=== PATIENT | male | born 1970 | race Caucasian/White ===

== ENCOUNTER 2024-08-07 13:06 | Inpatient (IN) | payer OTHER, SELFPAY ==
[2024-08-06] VITALS (8 sets, daily range): BP systolic 125–163; BP diastolic 66–85; BMI 42.0; BMI 43.2
[2024-08-06] MEDS: DUONEB 3 ML INH ×3 (10:55→20:36)
--- NOTE | 2024-08-06 11:00 | ED.GENMED ---
History of Present Illness
General
Chief Complaint: Chest Pain
Source: patient and family
Exam Limitations: none
Time Seen by Provider: 08/06/24 10:25
Nursing documentation reviewed up to this point in time: agreed with
History of Present Illness
History of Present Illness:
53-year-old male past medical history of hypertension sleep apnea presenting to the emergency department with shortness of breath worsening over the past 2 weeks ongoing cough saw the primary care doctor yesterday was found have some wheezing and
started on steroids antibiotics and had a nebulizer treatment. Worsening symptoms today. Also developing some chest pain secondary to coughing. Denies specific fevers.
Past History
Past History
ED Past Medical History: HTN
ED Past Surgical History: None
Social History
Tobacco: Non-smoker
Alcohol: None
Drug: None
Personal:
Living: with family
Employment: Employed
Review of Systems
Review of Systems
Allergies reviewed?: Yes
All Other Systems: ROS reviewed and negative except as documented in HPI and ROS
Phy Exam
Physical Exam
Physical Exam:
GENERAL: Alert , in no apparent distress
EYE: pupils equal and reactive
NECK: Supple, no significant adenopathy.
ENT: o/p clr, mmm.
CARDIAC: Regular rate and rhythm .
LUNGS: Diffuse inspiratory and expiratory wheezing
ABDOMEN: Soft, without focal tenderness, no r/g, no cvat
NEUROLOGICAL: Alert and oriented, no focal neuro deficits
SKIN: Warm and dry, skin intact.
MUSCULOSKELETAL: No edema, well perfused.
PSYCH: Normal and appropriate interaction.
Scores
Heart Score for Chest Pain Patients
STEMI patient?: No
History: Slightly or Non-Suspicious
ECG: Normal
Age: >45 - <65 years
Risk Factors: 1 or 2 Risk Factors
Troponin: </= Normal Limit
Heart Score for Chest Pain Patients: 2
Heart Score Risk: 2.5% MACE over next 6 weeks
Sepsis
Sepsis Screening
Sepsis Assessment: Sepsis Ruled Out
Sepsis Screen
Sepsis Screen: Sepsis Ruled Out
Date: 08/06/24
Time: 13:34
Course
Orders/Labs/Results
Orders:
Orders
08/06/24 10:02
Electrocardiogram (*1) Urgent
Reason for Study: Chest Pain
EKG- Treatment ONCE
08/06/24 10:50
Ipratropium/Albuterol Sulfate [Duoneb] 3 ml .ROUTE .STK-MED ONE
08/06/24 10:54
Ipratropium/Albuterol Sulfate [Duoneb] 3 ml INH R NOW ONE
Magnesium Sulfate 2 Gram/50 ml [Magnesium Sulfate] 2 gram in 50 ml IV NOW
Chest X-ray Portable [CR Chest Portable - 1 View] Urgent
Comment:
Reason For Exam: sob cough
Reason Study Needs to be Portable: Patient Unstable
08/06/24 10:59
CBC/With Diff [Complete Blood Count/With Diff] Urgent
CMP [Comprehensive Metabolic Panel] Urgent
08/06/24 13:29
Albuterol Nebs [Ventolin Nebules] 2.5 mg INH R NOW STA
Abnormal Lab Results
08/06/24
10:59
RBC 4.34 L 10^6/uL
(4.70-6.10)
MCH 33.9 H pg
(27.0-31.0)
Abs Immat Gran (auto) 0.1 H 10^3/uL
(0-0.05)
Absolute Neuts (auto) 7.8 H 10^3/uL
(1.4-6.5)
Absolute Monos (auto) 0.7 H 10^3/uL
(0.1-0.6)
Immature Gran % 1.0 H %
(0-0.5)
Lymphocytes % 17.5 L %
(20.5-51.1)
Carbon Dioxide 21 L mmol/L
(22-30)
Glucose 115 H mg/dl
(70-99)
08/06/24 10:59
08/06/24 10:59
Vital Signs
Initial and Last Documented VS:
Initial Vital Signs
Temp Pulse Resp BP Pulse Ox
97.9 F 67 22 163/85 95
08/06/24 10:10 08/06/24 10:10 08/06/24 10:10 08/06/24 10:10 08/06/24 10:10
Last Documented Vital Signs
Temp Pulse Resp BP Pulse Ox
97.9 F 62 15 132/76 91
08/06/24 10:10 08/06/24 13:15 08/06/24 13:15 08/06/24 12:00 08/06/24 13:15
MDM/Problems Addressed
MDM/Problems Addressed:
53-year-old male presenting to the emergency department with concerns of worsening shortness of breath. Has had shortness of breath worsening cough over the past 2 weeks old primary care doctor yesterday was found to have wheezing and started on
steroids inhalers and azithromycin. Upon arrival here hypertensive otherwise vital signs are normal. Patient does appear to have some difficulty breathing and is unable to speak in full sentences. Has diffuse symptoms during expiratory wheezing.
Started on DuoNeb also given dose of magnesium. Took a 60 mg dose of prednisone yesterday as well as today. patient had some slight improvement but still very severe significant diffuse wheezing plan to admit for further monitoring and treatment.
*Critical Care Note
Total Time (30-74mins, 75-104mins- exclusive of procedures): Not Applicable
ED Attending Note
-
Portions of this chart may have been created with voice recognition software.� Occasional wrong word or��sound alike� substitutions may have occurred due to the inherent limitations of voice recognition software.
Discharge Plan
Departure
Patient Disposition: Admit
Date of Disposition: 08/06/24
Time of Disposition: 13:34
Admit to: Med/Surg
Admit to doctor: Reba
Presentation/result/management discussed w/ accepting MD/DO: Hospitalist
Patient with high blood pressure during this ER visit?: No
Condition: Good
Covid-19: Not Applicable
Discharge Problem:
Diffuse wheezing
Prescriptions:
No Action
lisinopril-hydrochlorothiazide 1 EACH tablet
1 ea PO DAILY
ibuprofen 200 MG tablet
600 mg PO BIDPRN PRN (Reason: mild pain)
mirtazapine 15 MG tablet
15 mg PO HS
zolpidem 10 MG tablet
10 mg PO HS
amitriptyline 100 MG tablet
100 mg PO HS
fbqcvaa-xmzlvjmajfowf-wnyzuxwc 1 TABLET tablet
2 tab PO DAILYPRN PRN (Reason: migraine)
fish oil-dha-epa 1 EACH capsule
1 ea PO DAILY
galcanezumab-gnlm [Emgality Pen] 120 MG/ML pen injector
120 mg SQ MONTHLY
acetaminophen 325 MG tablet
650 mg PO Q6HPRN PRN (Reason: fever>100.5F) 0RF
amoxicillin-pot clavulanate 1 TABLET tablet
1 tab PO Q12 Qty: 14 0RF
amoxicillin 250 MG tablet,chewable
250 mg PO Q12H Qty: 14 0RF
ibuprofen 800 MG tablet
800 mg PO Q8HPRN PRN (Reason: Tooth Ache) Qty: 16 0RF
oxycodone-acetaminophen 5 MG/325 MG tablet
2 tab PO Q6HPRN PRN (Reason: Severe tooth pain 8-10) Qty: 30 0RF
hydrocortisone acetate 19.8 GM ointment
21 gm RC BID Qty: 1 0RF
Rx Instructions:
To rectal area 2-3 times a day
Referrals:
Sebastian Khan MD [Family Provider] -
Interventions
Interventions:
*ED COVID-19 Vaccine History Last Done: 08/06/24 10:10
ED- Cardiac Assessment Last Done: 08/06/24 10:45
Discharge Date and Time
Print Language: CITIZEN OF [place]
[2024-08-06] MEDS: MAGNESIUM SULFATE 50 IV (11:05)
[2024-08-06 11:09] LABS: % Basophils 0.3 % (0-2); % Eosinophils 0.4 % (0-6); % Lymphocytes 17.5 % (20.5-51.1); % Monocytes 6.9 % (1.7-9.3); % Neutrophils 73.9 % (42.2-75.2); Absolute Immature Granulocytes 0.1 10^3/uL (0-0.05); Absolute Lymphocytes 1.9 10^3/uL (1.2-3.4); Absolute Monocytes 0.7 10^3/uL (0.1-0.6); Absolute Neutrophils 7.8 10^3/uL (1.4-6.5); Hematocrit 39.9 % (39.0-52.0); Hemoglobin 14.7 g/dL (13.0-18.0); Mean Corp Hgb Conc. 36.8 g/dL (33.0-37.0); Mean Corpuscular Hgb 33.9 pg (27.0-31.0); Mean Corpuscular Volume 91.9 fL (80.0-94.0); Mean Platelet Volume 9.7 fL (7.4-10.4); Nucleated Red Blood Cells % 0 % (-); Platelet Count 343 10^3/uL (130-400); Red Blood Cell Count 4.34 10^6/uL (4.70-6.10); Red Cell Dist. Width 12.8 % (11.5-14.5); White Blood Cell Count 10.6 10^3/uL (4.8-10.8)
[2024-08-06 11:19] LABS: ALT (SGPT) 27 U/L (0-50); AST (SGOT) 26 U/L (17-59); Albumin 4.1 g/dl (3.5-5.0); Alkaline Phosphatase 52 U/L (38-126); Blood Urea Nitrogen 18 mg/dl (9-20); Calcium 9.8 mg/dl (8.4-10.2); Carbon Dioxide 21 mmol/L (22-30); Chloride 107 mmol/L (98-107); Estimated Creatinine Clearance > 125 ml/min; Glucose 115 mg/dl (70-99); Potassium 4.1 mmol/L (3.5-5.1); Sodium 140 mmol/L (135-145); Total Bilirubin 0.3 mg/dl (0.2-1.3); Total Protein 6.7 g/dl (6.3-8.2); eGFR > 60.00
[2024-08-06] MEDS: MORPHINE SULFATE 4 MG IV (13:46)
[2024-08-06] MEDS: VENTOLIN NEBULES 2.5 MG INH (13:46)
--- NOTE | 2024-08-06 13:59 | HPS.HSE ---
Family Physician
-
Family Physician: Sebastian Khan
Chief Complaint
-
cough
History of Present Illness
53-year-old male past medical history of hypertension, sleep apnea, presented to the emergency room for shortness of breath worsening over the past 2 weeks with cough. He saw the primary care doctor yesterday and was found to have wheezing and
started on steroids, antibiotics and had a nebulizer treatment. She has worsening symptoms today. She also developed some chest pain secondary to coughing yesterday. Pain involves the chest and radiates to the scapula on the back. She denies any
fevers or chills. He denies any sore throat or bodyaches at any time. He noted he was hypoxic down to 80s at home.
He denies any history of asthma or COPD. He is a former smoker but has not smoked in several years. He drinks alcohol rarely.
Denies any history of blood clots.
Medical History
Past Medical History
Past Medical History: Reports Other (hypertension, sleep apnea, )
Past Surgical History: Reports None
Social History
Tobacco: Former Smoker
Alcohol: Occasional
Drug: None
Family History
Family History: Not pertinent
Allergies / Home Medications
Allergies reflects when Allergies were last updated in [facility].
Home Medications with original date entered in [facility]
Allergy/Medication List:
Allergies
Allergy/AdvReac Type Severity Reaction Status Date / Time
No Known Allergies Allergy Verified 08/06/24 10:16
Home Medications
albuterol sulfate 90 mcg/actuation aerosol inhaler 2 puff inhalation R Q4HPRN PRN sob/wheezing 08/06/24
allopurinol 100 mg tablet 100 mg PO DAILY 08/06/24
azithromycin 250 mg tablet 250 mg PO PER PKG DIR 08/06/24
diazepam 5 mg tablet 1 mg PO [id number] PRN dental visits 08/06/24
indomethacin 50 mg capsule 50 mg PO BIDPRN PRN gout flare up 08/06/24
lisinopril 20 mg-hydrochlorothiazide 25 mg tablet 1 tab PO DAILY 08/06/24
prednisone 20 mg tablet 20 mg PO .TAPER 08/06/24
Review of Systems
-
History Source: Patient
A 12 point ROS was completed and negative except as noted: Yes
Constitutional: Reports No Symptoms
EENT: Reports No Symptoms
Respiratory: Reports See HPI
Cardiac: Reports See HPI
Abdomen/GI: Reports No Symptoms
: Reports No Symptoms
Musculoskeletal: Reports No Symptoms
Skin: Reports No Symptoms
Neurological: Reports No Symptoms
Endocrine: Reports No Symptoms
Hematologic/Lymphatic: Reports No Symptoms
Psych: Reports No Symptoms
Physical Exam
Vital Signs
Vital Signs
Temp Pulse Resp BP Pulse Ox
97.9 F 62 15 132/76 91
08/06/24 10:10 08/06/24 13:15 08/06/24 13:15 08/06/24 12:00 08/06/24 13:15
Physical Exam
General: Well Developed, Well Nourished and No Apparent Distress
HEENT: NormoCephalic, Moist mucous membranes and Atraumatic
Respiratory: Wheezes and Rhonchi
Cardiac: S1/S2 and Regular Rhythm; No Murmur or Rub
GI: Soft, Non Tender, Non Distended and Normal Bowel Sounds; No Organomegaly
Rectal: Deferred by Provider
Musculoskeletal: No Clubbing, No Cyanosis and No Edema
Skin: No Rash
Neuro: Nonfocal/grossly intact
Laboratory Results
-
08/06/24 10:59
08/06/24 10:59
Laboratory Results
Total Bilirubin 0.3 mg/dl (0.2-1.3) 08/06/24 10:59
AST 26 U/L (17-59) 08/06/24 10:59
ALT 27 U/L (0-50) 08/06/24 10:59
Alkaline Phosphatase 52 U/L (38-126) 08/06/24 10:59
Data Reviewed
-
Lab Data: Labs Reviewed by me
Old Records: Reviewed
Impression/Plan
-
IMPRESSION:
PLAN:
# Reactive airway disease/acute bronchitis with chest pain secondary to cough
-Chest x-ray showed minimal bibasilar opacities, favoring atelectasis without evidence of pneumonia
-Given DuoNebs, magnesium
-Inspiratory/expiratory wheezing
-Continue DuoNebs every 6 hours
-Dexamethasone 4 mg every 12
-Guaifenesin
-stop azithromycin
Essential hypertension
-Continue lisinopril/hydrochlorothiazide
Obstructive sleep apnea
-Uses CPAP
Gout
-Continue allopurinol
Anxiety
-Continue diazepam
Full code
DVT prophylaxis�heparin
Regular
[2024-08-06 15:51] LABS: COVID-19 Antigen Negative (Negative)
[2024-08-06] MEDS: LOVENOX 40 MG SC (17:02)
[2024-08-06] MEDS: DECADRON 4 MG IV (17:04)
[2024-08-06] MEDS: TYLENOL 650 MG PO ×2 (17:05→22:09)
[2024-08-06] MEDS: ROBITUSSIN DM 10 ML PO ×2 (17:53→22:09)
[2024-08-07] MEDS: DECADRON 4 MG IV ×3 (00:15→15:23)
[2024-08-07] MEDS: MORPHINE SULFATE 2 MG IV ×2 (04:13→09:36)
[2024-08-07 07:35] VITALS: BP 134/64
[2024-08-07] MEDS: DUONEB 3 ML INH ×4 (07:55→19:37)
[2024-08-07] MEDS: ZESTRIL 20 MG PO (08:15)
[2024-08-07] MEDS: ZYLOPRIM 100 MG PO (08:15)
[2024-08-07] MEDS: ORETIC 25 MG PO (08:16)
[2024-08-07 08:33] LABS: % Basophils 0.2 % (0-2); % Immature Granulocytes 0.8 % (0-0.5); % Lymphocytes 9.9 % (20.5-51.1); % Monocytes 4.7 % (1.7-9.3); % Neutrophils 84.4 % (42.2-75.2); Absolute Immature Granulocytes 0.1 10^3/uL (0-0.05); Absolute Lymphocytes 1.2 10^3/uL (1.2-3.4); Absolute Monocytes 0.6 10^3/uL (0.1-0.6); Absolute Neutrophils 10.5 10^3/uL (1.4-6.5); Hemoglobin 14.8 g/dL (13.0-18.0); Mean Corp Hgb Conc. 36.1 g/dL (33.0-37.0); Mean Corpuscular Hgb 34.7 pg (27.0-31.0); Nucleated Red Blood Cells % 0 % (-); Platelet Count 351 10^3/uL (130-400); Red Blood Cell Count 4.27 10^6/uL (4.70-6.10); Red Cell Dist. Width 13.7 % (11.5-14.5); White Blood Cell Count 12.5 10^3/uL (4.8-10.8)
[2024-08-07 09:12] LABS: Blood Urea Nitrogen 14 mg/dl (9-20); Calcium 9.8 mg/dl (8.4-10.2); Carbon Dioxide 23 mmol/L (22-30); Chloride 104 mmol/L (98-107); Estimated Creatinine Clearance > 125 ml/min; Glucose 119 mg/dl (70-99); Potassium 4.9 mmol/L (3.5-5.1); Sodium 140 mmol/L (135-145); eGFR > 60.00
[2024-08-07] MEDS: ROBITUSSIN AC 5 ML PO (11:52)
[2024-08-07] MEDS: TORADOL 15 MG IV ×2 (11:53→18:01)
--- NOTE | 2024-08-07 12:39 | W.PN.HOSP.TC ---
Today's Communication/Plan
-
IV steroids
bronchodilators
check CT chest
Assessment / Plan
Assessment / Plan
# Reactive airway disease/acute bronchitis with chest pain secondary to cough
#Hx of tobacco abuse
-Chest x-ray showed minimal bibasilar opacities, favoring atelectasis without evidence of pneumonia
-Check CT chest
-Given DuoNebs, magnesium
-Inspiratory/expiratory wheezing
-Continue DuoNebs
-Dexamethasone 4 mg every 12
-Guaifenesin w/codeine
-flu and COVID negative. Check RSV. Works as RN at [email or web address]
-stop azithromycin
Essential hypertension
-Continue lisinopril/hydrochlorothiazide
Obstructive sleep apnea
-Uses CPAP
Gout
-Continue allopurinol
Anxiety
-hold benzos
Morbid obesity due to excess calories
-affects all aspect of medical care
-weight loss recommended
Full code
DVT prophylaxis�heparin
Anticipated Discharge: Within 24 hours
Subjective/Interval History
-
Date of Service: August 07, 2024
states of severe pain with coughing
dry cough
used to smoke in the past and exposure to tobacco
Objective Data
-
Labs:
Laboratory Results
08/07/24
08:13
WBC 12.5 H
Hgb 14.8
Hct 41.0
Plt Count 351
Sodium 140
Potassium 4.9
Chloride 104
Carbon Dioxide 23
BUN 14
Creatinine 0.7
Glucose 119 H
Calcium 9.8
Vital Signs:
Vital Signs
Temp Pulse Resp BP Pulse Ox
97.7 F 78 18 134/64 93
08/07/24 07:35 08/07/24 11:22 08/07/24 11:22 08/07/24 07:35 08/07/24 11:22
I&O
08/06/24 08/07/24 08/08/24
06:59 06:59 06:59
Intake Total 1640 / 1640
Output Total 1300 / 1300
Balance 340 / 340
Physical Exam
-
General: Well Developed, Well Nourished, No Apparent Distress and Morbidly Obese
HEENT: Normocephalic, Atraumatic and Moist Mucous Membranes
Respiratory: Wheezes and Decreased Breath Sounds
Cardiac: Regular Rhythm and S1/S2; Negative Murmur, Rub or Gallop
GI: Soft, Nontender, Nondistended and Normal Bowel Sounds; Negative Organomegaly
Rectal: Deferred by Provider
Musculoskeletal: No Clubbing, No Cyanosis and No Edema
Skin: Negative Rash
Neuro: Awake, Alert, Oriented, AO x 3, No Motor Deficits and Nonfocal/Grossly Intact
Psych: Calm
Data Reviewed
-
Total Time Spent with Patient (in minutes): 51
[2024-08-07 15:00] VITALS: BP 134/71
--- NOTE | 2024-08-07 15:19 | CM ---
Pt seen bedside. Pt lives w/ and two minor children in a [facility]- 2 steps to enter
Independent, denies DME use for ambulating. Pt has CPAP at home that he brought to hospital with him
Denies SNF, had OP rehab in 1982 for knee repair
Denies VN/PT in the past
Denies financial insecurities
Address, point of contact and insurance verified
PCP: Dr. Sebastian Khan
[facility]acy: [facility]
Plan: Home; no needs anticipated
[2024-08-07] MEDS: STERILE WATER FOR INJECTION 10 ML IV (15:24)
[2024-08-07] MEDS: ROCEPHIN 1000 MG IV (15:24)
[2024-08-07] MEDS: LOVENOX SC (16:37)
[2024-08-07] MEDS: ROBITUSSIN DM 10 ML PO (18:02)
[2024-08-07] MEDS: VIBRAMYCIN 100 MG PO (19:20)
[2024-08-07] MEDS: TUMS CHEWABLE TABLET 200 MG PO (20:47)
[2024-08-07 23:30] VITALS: BP 129/70
[2024-08-08] MEDS: DECADRON 4 MG IV ×3 (00:05→20:07)
[2024-08-08] MEDS: TUMS CHEWABLE TABLET 200 MG PO (04:55)
[2024-08-08] MEDS: TORADOL 15 MG IV ×3 (04:55→20:08)
[2024-08-08 07:00] VITALS: BP 124/70
[2024-08-08] MEDS: DUONEB 3 ML INH ×4 (07:17→20:02)
[2024-08-08] MEDS: ORETIC 25 MG PO (08:35)
[2024-08-08] MEDS: VIBRAMYCIN 100 MG PO ×2 (08:36→20:07)
[2024-08-08] MEDS: ZYLOPRIM 100 MG PO (08:36)
[2024-08-08] MEDS: ZESTRIL 20 MG PO (08:36)
[2024-08-08 09:08] LABS: Blood Urea Nitrogen 20 mg/dl (9-20); Calcium 9.6 mg/dl (8.4-10.2); Carbon Dioxide 26 mmol/L (22-30); Chloride 102 mmol/L (98-107); Estimated Creatinine Clearance > 125 ml/min; Glucose 108 mg/dl (70-99); Potassium 4.7 mmol/L (3.5-5.1); Sodium 141 mmol/L (135-145); eGFR > 60.00
[2024-08-08 09:35] LABS: % Basophils 0.2 % (0-2); % Neutrophils 81.8 % (42.2-75.2); Absolute Immature Granulocytes 0.1 10^3/uL (0-0.05); Absolute Lymphocytes 1.4 10^3/uL (1.2-3.4); Absolute Monocytes 0.7 10^3/uL (0.1-0.6); Absolute Neutrophils 10.2 10^3/uL (1.4-6.5); Hemoglobin 14.3 g/dL (13.0-18.0); Mean Corp Hgb Conc. 32.5 g/dL (33.0-37.0); Mean Corpuscular Hgb 30.1 pg (27.0-31.0); Mean Corpuscular Volume 92.6 fL (80.0-94.0); Mean Platelet Volume 10.2 fL (7.4-10.4); Nucleated Red Blood Cells % 0 % (-); Platelet Count 365 10^3/uL (130-400); Red Blood Cell Count 4.75 10^6/uL (4.70-6.10); Red Cell Dist. Width 13.1 % (11.5-14.5); White Blood Cell Count 12.4 10^3/uL (4.8-10.8)
--- NOTE | 2024-08-08 11:11 | CM ---
CM reviewed chart, patient seen bedside, hopeful for discharge today or tomorrow. Patient denies any needs upon discharge. CM will continue to follow for all discharge planning needs.
Plan; home no needs likely.
--- NOTE | 2024-08-08 12:18 | W.PN.HOSP.TC ---
Addendum entered and electronically signed by Amauri Goldstein MD 08/08/24 14:19:
Patient states he feels mild lightheaded and dizzy. States the cough is starting to become more productive. However feeling extremely weak.
Will observe overnight.
Original Note:
Today's Communication/Plan
-
OOB/ambulate
monitor o2
IV steroids
abx
plan for tentative dc later today
Assessment / Plan
Assessment / Plan
# Reactive airway disease/Community acquire pneumonia
#Hx of tobacco abuse
-Chest x-ray showed minimal bibasilar opacities, favoring atelectasis without evidence of pneumonia
-CT chest no pulmonary embolism. Dense airspace consolidation within the lingula most likely representing pneumonia.
-Continue DuoNebs
-Dexamethasone 4 mg every 12 and switch to po taper regimen on dc
-started on rocephin/doxy-po abx on dc.
-Guaifenesin w/codeine
-flu and COVID negative. Check RSV and found to be negative . Works as RN at [employer], [place]
-stop azithromycin
Essential hypertension
-Continue lisinopril/hydrochlorothiazide
Obstructive sleep apnea
-Uses CPAP
Gout
-Continue allopurinol
Anxiety
-hold benzos
Morbid obesity due to excess calories
-affects all aspect of medical care
-weight loss recommended
Full code
DVT prophylaxis�heparin
Anticipated Discharge: Today
Subjective/Interval History
-
Date of Service: August 08, 2024
feeling better
remains with cough but improving
on room air
Objective Data
-
Labs:
Laboratory Results
08/08/24
07:41
WBC 12.4 H
Hgb 14.3
Hct 44.0
Plt Count 365
Sodium 141
Potassium 4.7
Chloride 102
Carbon Dioxide 26
BUN 20
Creatinine 0.8
Glucose 108 H
Calcium 9.6
Vital Signs:
Vital Signs
Temp Pulse Resp BP Pulse Ox
97.9 F 61 16 124/70 97
08/08/24 07:00 08/08/24 11:40 08/08/24 11:40 08/08/24 08:35 08/08/24 11:40
I&O
08/07/24 08/08/24 08/09/24
06:59 06:59 06:59
Intake Total 1640 / 1640 1200 / 1200
Output Total 1300 / 1300 650 / 650
Balance 340 / 340 550 / 550
Physical Exam
-
General: Well Developed, Well Nourished, No Apparent Distress and Morbidly Obese
HEENT: Normocephalic, Atraumatic and Moist Mucous Membranes
Respiratory: Decreased Breath Sounds (improvement in aeration )
Cardiac: Regular Rhythm and S1/S2; Negative Murmur, Rub or Gallop
GI: Soft, Nontender, Nondistended and Normal Bowel Sounds; Negative Organomegaly
Rectal: Deferred by Provider
Musculoskeletal: No Clubbing, No Cyanosis and No Edema
Skin: Negative Rash
Neuro: Awake, Alert, Oriented, AO x 3, No Motor Deficits and Nonfocal/Grossly Intact
Psych: Calm
Data Reviewed
-
Total Time Spent with Patient (in minutes): 51
[2024-08-08 15:00] VITALS: BP 162/84
[2024-08-08] MEDS: STERILE WATER FOR INJECTION 10 ML IV (15:08)
[2024-08-08] MEDS: ROCEPHIN 1000 MG IV (15:08)
[2024-08-08] MEDS: TYLENOL 650 MG PO (16:46)
[2024-08-08] MEDS: SENOKOT-S 1 TABLET PO ×2 (16:46→20:07)
[2024-08-08] MEDS: LOVENOX SC (17:19)
[2024-08-08 19:55] VITALS: BP 157/95; BP 158/80; BP 158/82; PULSE 79; PULSE 86; PULSE 92
[2024-08-08 23:18] VITALS: BP 113/55
[2024-08-09] MEDS: DUONEB 3 ML INH ×2 (07:33→11:37)
[2024-08-09] MEDS: DECADRON 4 MG IV (07:37)
[2024-08-09] MEDS: VIBRAMYCIN 100 MG PO (07:37)
[2024-08-09] MEDS: ZESTRIL 20 MG PO (07:37)
[2024-08-09] MEDS: ZYLOPRIM 100 MG PO (07:38)
[2024-08-09] MEDS: TORADOL 15 MG IV (07:38)
[2024-08-09] MEDS: ORETIC 25 MG PO (07:38)
[2024-08-09] MEDS: SENOKOT-S 1 TABLET PO (07:38)
[2024-08-09 07:40] VITALS: BP 131/80
[2024-08-09] MEDS: ROBITUSSIN AC 5 ML PO (09:17)
--- NOTE | 2024-08-09 11:06 | W.PN.HOSP.TC ---
Today's Communication/Plan
-
po abx
po steroids
Assessment / Plan
Assessment / Plan
# Reactive airway disease/Community acquire pneumonia
#Hx of tobacco abuse
-Chest x-ray showed minimal bibasilar opacities, favoring atelectasis without evidence of pneumonia
-CT chest no pulmonary embolism. Dense airspace consolidation within the lingula most likely representing pneumonia.
-Continue DuoNebs
-Dexamethasone 4 mg every 12 and switch to po taper regimen on dc
-started on rocephin/doxy-po abx on dc.
-Guaifenesin w/codeine
-flu and COVID negative. Check RSV and found to be negative . Works as RN at [employer]
-stop azithromycin. Remains on room air
Essential hypertension
-Continue lisinopril/hydrochlorothiazide
-orthos negative
Obstructive sleep apnea
-Uses CPAP
Gout
-Continue allopurinol
Anxiety
-hold benzos while on codeine. Only takes before Dentist visit or dental procedures. Otherwise not on it on daily basis .
Morbid obesity due to excess calories
-affects all aspect of medical care
-weight loss recommended
Full code
DVT prophylaxis�heparin
More than 30 minutes spent in discharge including
Final examination of the patient
Summarizing hospital stay
Instructions for continuing care to all relevant caregivers
Preparation of discharge records, prescriptions, and referral forms
Total time spent (in minutes): 51
Anticipated Discharge: Today
Subjective/Interval History
-
Date of Service: August 09, 2024
remains with cough but states breathing has improved
Objective Data
-
Vital Signs:
Vital Signs
Temp Pulse Resp BP Pulse Ox
97.1 F 56 20 131/80 98
08/09/24 07:40 08/09/24 07:40 08/09/24 07:40 08/09/24 07:40 08/09/24 07:40
I&O
08/08/24 08/09/24 08/10/24
06:59 06:59 06:59
Intake Total 1200 / 1200 840 / 840
Output Total 650 / 650 2875 / 2875
Balance 550 / 550 -2034 / -2034
Physical Exam
-
General: Well Developed, Well Nourished, No Apparent Distress and Morbidly Obese
HEENT: Normocephalic, Atraumatic and Moist Mucous Membranes
Respiratory: Decreased Breath Sounds (improvement in aeration -significant improvement )
Cardiac: Regular Rhythm and S1/S2; Negative Murmur, Rub or Gallop
GI: Soft, Nontender, Nondistended and Normal Bowel Sounds; Negative Organomegaly
Rectal: Deferred by Provider
Musculoskeletal: No Clubbing, No Cyanosis and No Edema
Skin: Negative Rash
Neuro: Awake, Alert, Oriented, AO x 3, No Motor Deficits and Nonfocal/Grossly Intact
Psych: Calm
--- NOTE | 2024-08-09 11:08 | W.DCSUMMARY ---
Discharge Summary
Discharge Data
Date of Admission: 08/07/24
Date of Discharge: 08/09/24
-
Pending Results: No
Hospital Course
53-year-old male past medical history of hypertension, ENRIQUE on CPAP, gout, anxiety, morbid obesity excess calories, history of tobacco abuse who is presenting from home with complaints of severe cough associated chest pain. Chest x-ray was
nonconclusive. Patient was started on IV steroids as concern for bronchitis. Patient subsequently underwent CT chest PE study which showed patient with left sided focal infiltrate and concern for pneumonia. Patient was started on ceftriaxone and
doxycycline. Patient pulmonary exam continue to improve. Patient wheezing and chest tightness continue to improve. Patient was stable on room air. Patient symptomology continued to improve with bronchodilators and other medical management and
treatment. Patient be discharged home with p.o. antibiotics, p.o. steroids and anticough medication. Recommended patient to repeat chest x-ray in 5 to 6 weeks to assess for resolution of pneumonia. Recommended outpatient follow-up with primary
doctor..
Discharge Plan
-
Patient Disposition: Home (Routine Discharge)
Discharge Diagnosis/Procedures: Reactive airway disease
Community-acquired pneumonia
Condition: Fair
Diet: As tolerated
Activity: As tolerated
Driving Restrictions: As prior to admission
Others Tests: Repeat chest x-ray in 5 to 6 weeks to assess for resolution of pneumonia
Referrals:
Sebastian Khan MD [Family Provider] - in less than 1 week
Prescriptions:
New
codeine-guaifenesin 10-100 mg/5 mL Liquid
5 ml PO Q4HPRN PRN (Reason: severe cough) Qty: 120 0RF
doxycycline hyclate 100 mg Capsule
100 mg PO Q12 4 Days Qty: 8 0RF
prednisone 10 mg Tablet
See Rx Instructions .ROUTE .COMPLEX Qty: 30 0RF
Rx Instructions:
Take By Mouth:
40 mg daily x3 days, 30 mg daily x3 days,
20 mg daily x3 days, 10 mg daily x3 days.
cefdinir 300 mg capsule
300 mg PO Q12H Qty: 8 0RF
benzonatate 200 mg capsule
200 mg PO BID PRN (Reason: Cough) Qty: 20 0RF
Continued
allopurinol 100 mg tablet
100 mg PO DAILY
indomethacin 50 mg capsule
50 mg PO BIDPRN PRN (Reason: gout flare up)
lisinopril-hydrochlorothiazide 20-25 mg tablet
1 tab PO DAILY
albuterol sulfate 90 mcg/actuation HFA aerosol inhaler
2 puff INHALATION R Q4HPRN PRN (Reason: sob/wheezing)
Held
diazepam 5 mg tablet
1 mg PO [id number] PRN (Reason: dental visits)
Hold Instructions: Resume on 08/21/24.
Discontinued
azithromycin 250 mg tablet
250 mg PO PER PKG DIR
prednisone 20 mg tablet
20 mg PO .TAPER
Rx Instructions:
take 3 tablets by mouth once daily for 2 days then 2 for 3 days then 1 for 3 days
Discharge Orders:
Discharge Patient (As Directed); Ordered 08/09/24
Ordered By: mAauri Goldstein
Discharge Date and Time
Print Language: [place]
--- NOTE | 2024-08-09 12:35 | CM ---
Chart reviewed. Pt to d/c home today
Pt has private transport at d/c.
No CM needs identified at this time
Plan: Home; no needs
[2024-08-09 12:40] VITALS: BP 138/78
[2024-08-09 14:58] VITALS: BP 138/81
== END 2024-08-09 15:50 | disposition home or self-care (01) | DRG 194 ==
LOC: 4 WEST ACU 13:06
PROVIDERS: Physician Assistant; ADMITTING PHYSICIAN Hospitalist; ATTENDING PHYSICIAN Hospitalist; EMERGENCY PHYSICIAN Student in an Organized Health Care Education/Training Program; FAMILY PHYSICIAN Family Medicine
PROC: 5A09357 Assistance with Respiratory Ventilation, Less than 24 Consecutive Hours, Continuous Positive Airway Pressure (ICD-10-PCS; 2024-08-07)
DX: J18.9 Pneumonia, unspecified organism (principal); J98.11 Atelectasis; Z68.41 Body mass index [BMI] 40.0-44.9, adult; J45.909 Unspecified asthma, uncomplicated; I10 Essential (primary) hypertension; G47.33 Obstructive sleep apnea (adult) (pediatric); R09.02 Hypoxemia; M10.9 Gout, unspecified; F41.9 Anxiety disorder, unspecified; E66.01 Morbid (severe) obesity due to excess calories; Z87.891 Personal history of nicotine dependence; Z11.52 Encounter for screening for COVID-19
CPT/HCPCS: 71045; 71275; 80048; 80053; 85025; 87502; 87807; 87811; 93005; 94640; 96365; 96375; 99285; Q9967